=== PATIENT | female | born 1990 | race Caucasian/White ===

== ENCOUNTER 2020-02-13 11:14 | Emergency (ER) | payer MEDICAID ==
[~2020-02-13] VITALS: Ht 170.2 cm; Wt 104.5 kg
[2020-02-13 12:10] VITALS: BP 169/100
== END 2020-02-13 12:11 ==
LOC: ER 11:15
DX: T14.8XXA Other injury of unspecified body region, initial encounter (principal); M25.522 Pain in left elbow; X58.XXXA Exposure to other specified factors, initial encounter; Y93.89 Activity, other specified; Y92.89 Other specified places as the place of occurrence of the external cause; Y99.8 Other external cause status
CPT/HCPCS: 73080; 99283